=== PATIENT | male | born 1950 | race Caucasian/White ===

== ENCOUNTER → 2018-06-25 | Outpatient (CLI) | payer OTHER ==
--- NOTE | 2018-06-25 13:37 | Diagnostic Imaging Report ---
PROCEDURE:X-RAY ABDOMEN - KUB COMPARISON:None. INDICATIONS:CALCULUS OF KIDNEY FINDINGS: Bowel: There is a non-obstructed bowel-gas pattern. No dilated bowel loops. Calcifications: There are no calcifications projected over the renal shadows, expected course of the ureters or bladder. Bilateral round calcifications in the pelvis are suggestive of phleboliths. Organomegaly: None. Cholecystectomy clips are in the right upper quadrant. Lung bases: Clear. Bones: There are no acute osseous abnormalities. CONCLUSION: No radiographic evidence of renal or ureteral calculus. Dictated by: Ras Blackwood M.D. on 06/25/2018 at 13:43 Electronically approved by: Ras Blackwood M.D. on 06/25/2018 at 13:43
== END ==
LOC: RAD 12:46
PROVIDERS: ATTEND Urology
DX: N20.0 Calculus of kidney (principal)
CPT/HCPCS: 74018